=== PATIENT | female | born 1990 | race Caucasian/White ===

== ENCOUNTER 2016-10-13 14:03 | Inpatient (IN) | payer OTHER ==
[~2016-10-13] VITALS: Ht 149.9 cm; Wt 73.4 kg
[2016-10-13 14:09] VITALS: Ht 149.9 cm; Wt 73.4 kg
[2016-10-13 14:30] LABS: ADD SCAN DIFF NO
[2016-10-13 14:32] LABS: BASOPHILS % 0.3 % (0.0-2.0); EOSINOPHILS # 0.1 10^3/ul (0.0-0.5); EOSINOPHILS % 0.7 % (0.0-7.0); HEMATOCRIT 34.4 % (37.0-47.0); HEMOGLOBIN 11.3 g/dl (12.0-16.0); LYMPHOCYTES # 2.1 10^3/ul (0.8-2.9); MEAN CORPUSCULAR HEMOGLOBIN 28.1 pg (29.0-33.0); MEAN CORPUSCULAR HGB CONC 32.8 g/dl (32.0-37.0); MEAN CORPUSCULAR VOLUME 85.6 fl (82.0-101.0); MEAN PLATELET VOLUME 10.3 fl (7.4-10.4); MONOCYTE # 1.1 10^3/ul (0.3-0.9); MONOCYTES % 10.3 % (0.0-11.0); NEUTROPHILS % 67.5 % (39.0-77.0); PLATELET COUNT 265 10^3/UL (140-415); RED BLOOD COUNT 4.02 10^6/ul (4.20-5.40); RED CELL DISTRIBUTION WIDTH 12.3 % (11.5-14.5); WHITE BLOOD COUNT 10.4 10^3/ul (4.8-10.8)
[2016-10-13 14:33] VITALS: BP 142/96; PULSE 100; RESP 18
[2016-10-13 14:41] LABS: ADD UMIC YES; URINE BILIRUBIN (Dip) NEGATIVE (NEGATIVE); URINE BLOOD (Dip) NEGATIVE (NEGATIVE); URINE COLOR LT. YELLOW (YELLOW); URINE GLUCOSE (Dip) NEGATIVE (NEGATIVE); URINE KETONES (Dip) NEGATIVE (NEGATIVE); URINE LEUKOCYTE ESTERASE (Dip) 3+ (NEGATIVE); URINE NITRITE (Dip) NEGATIVE (NEGATIVE); URINE TOTAL PROTEIN (Dip) NEGATIVE (NEGATIVE); URINE UROBILINOGEN (Dip) 0.2 E.U./dL (0.1-1.0)
[2016-10-13 14:50] LABS: ALBUMIN 3.5 g/dl (3.3-4.9); POTASSIUM 3.8 mmol/L (3.5-5.1)
[2016-10-13 14:52] LABS: BILIRUBIN,INDIRECT 0.3 mg/dl (0-1.1); BILIRUBIN,TOTAL 0.3 mg/dl (0.2-1.3); CREATININE 0.89 mg/dl (0.44-1.00)
[2016-10-13 14:53] LABS: ALBUMIN/GLOBULIN RATIO 0.89; CALCIUM 8.9 mg/dl (8.4-10.2); TOTAL PROTEIN 7.4 g/dl (6.1-8.1)
[2016-10-13 15:04] LABS: BACTERIA,URINE OCCASIONAL; URINE RBCS 0-2 /HPF (0)
--- NOTE | 2016-10-13 15:09 | RADRPT ---
PROCEDURE: US OB biophysical profile. CLINICAL INDICATION: decreased movements, preeclampsia TECHNIQUE: Multiple sonographic images of the pelvis were obtained. The images were reviewed on a PACS workstation. COMPARISON: No prior studies are available for comparison. FINDINGS: There is a single viable intrauterine gestation. Cardiac activity is present with 118 beats per min naknek. There is a vertex presentation. The placenta is anterior. There is no evidence of placental abruption. There is a normal amount of amniotic fluid with an KARTIK = 11.1 cm. Biophysical profile: movement 2/2 tone 2/2. breathing 2/2 KARTIK 2/2 Total 01/30 RPTAT: AA . IMPRESSION: Normal biophysical profile. . .Lewis Tran MD, MD Date Time Electronically viewed and signed by .Lewis Tran MD, MD on 10/13/2016 15:09 .S/
--- NOTE | 2016-10-13 17:56 | TRIAGE ---
OB Triage Datetime Report Generated by CPN: 10/13/2016 17:56 Datetime: 10/13/2016 16:00 Labor Evaluation Frequency: OCC Monitor Mode: External Duration (sec)2399: 50-90 Quality: Mild Pattern: Normal: <= 5 Contractions in 10 Minutes Resting Tone [place]: Relaxed Heart Rate FHR Baseline Rate: 125 Monitor Mode: External US FHR Baseline Changes: No Baseline Change Variability: Moderate 6-25 bpm Accelerations: 15X15 Decelerations: None Category: Category I Pain Assessment Pain Presence: None/Denies Pain Assessment Comments: Pt denies feeling pain and pressure with contractions Datetime: 10/13/2016 15:00 Labor Evaluation Frequency: x2 contractions in last hour Monitor Mode: External Duration (sec)2399: 60-90 Quality: Moderate Pattern: Normal: <= 5 Contractions in 10 Minutes Resting Tone [place]: Relaxed Contraction Comments: Irritability Heart Rate FHR Baseline Rate: 130 Monitor Mode: External US FHR Baseline Changes: No Baseline Change Variability: Moderate 6-25 bpm Accelerations: 15X15 Decelerations: None Category: Category I Datetime: 10/13/2016 14:35 Assessment Type: Triage Maternal Assessment Level of Consciousness: Fully Conscious DTR's/Clonus: DTRs 2+; No Clonus Headache: Denies Blurred Vision: No Respiratory Effort: Unlabored; Regular Rhythm; Equal Expansion Breath Sounds, Left: Clear and Equal Breath Sounds, Right: Clear and Equal Nausea/Vomiting: Denies RUQ Epigastric Pain: Denies Lower Extremities Edema: Bilateral Lower Extremities Degree: 1+ Upper Extremities Edema: Bilateral Upper Extremities Degree: Trace Facial Edema: None Fall Risk Assessment History of Falling: (0) No Secondary Diagnosis: (0) No Ambulatory Aid: (0) Bedrest/Nurse Assist IV Therapy: (0) No Gait: (0) Normal/Bedrest/Immobile Mental Status: (0) Oriented to Own Ability Fall Score: 0 Fall Risk Score Definition: No Risk: No action required Datetime: 10/13/2016 14:34 Time of Arrival: 10/13/2016 13:59 EGA: 34.3 Arrived By: Ambulatory Arrived From: Home Chief Complaint: Elevated BP from clinic Movement: Present Contractions: Denies/Absent Rupture of Membranes: Denies Vaginal Bleeding: None Vaginal Discharge: Denies Recent Sexual Intercouse: Denies Abdominal Trauma: Not Applicable Patient Complaints: None Time Provider Notified: 10/13/2016 16:20 Provider Notified: MD Gil Initial Plan: NST, BPP/KARTIK, CBC, CMP, Uric Acid Datetime: 10/13/2016 14:15 Pain Assessment Pain Presence: None/Denies Datetime: 10/13/2016 14:12 Stage of : OB Triage
--- NOTE | 2016-10-13 18:38 | HP ---
Date/Time of Note Date/Time of Note DATE: 10/13/16 TIME: 18:35 OB - History Hx of Present Chief Complaint: Elevated BP Estimated Due Date: November 21, 2016 : 1 Para: 0 Spontaneous : 0 Therapeutic : 0 Care: Good Care Ultrasounds: Normal mid trimester US Obstetrical Complications: Other (Zika infection) Medical Complications: None Past Family/Social History * Past Medical, Surgical, Family and Obstetric Histories reviewed from chart. OB Admission Exam Vital Signs Vital Signs Vital Signs Date Time Temp Pulse Resp B/P Pulse Ox O2 Delivery O2 Flow Rate FiO2 10/13/16 14:33 98.1 100 18 142/96 Room Air Physical Exam HEENT: WNL Heart: Rhythm Normal Lungs: Clear Abdomen: WNL Extremities: Normal Reflexes: Normal Cervical Dilatation: None Membranes: Intact Heart Rate: 130's Accelerations: Accelerations Present Decelerations: No Decelerations Varibility: Moderate Last 72 hours Lab Results CBC & BMP 10/13/16 14:15 Liver Function Test 10/13/16 14:15 Alanine Aminotransferase (ALT/SGPT) 28 Albumin 3.5 Alkaline Phosphatase 225 H Aspartate Amino Transf (AST/SGOT) 29 Direct Bilirubin 0.00 Total Protein 7.4 OB Assessment/Plan Reason for admission: other (R/O preeclampsia) Plan: Other (Admit, 24 hour urine collection, monitor BP) KARIN TENORIO MD Oct 13, 2016 18:38
[2016-10-14] MEDS ORDERED: PREN-93 PO (00:27)
[2016-10-14 18:36] LABS: SCRET 0.89 mg/dl (0.44-1.00)
--- NOTE | 2016-10-14 19:21 | QN ---
Documentation Comment no complaint Afebrile VSS Strip Reactive 24 hour urine protein is elevated Will request Perinatology consult. KARIN TENORIO MD Oct 14, 2016 19:21
[2016-10-14] MEDS ORDERED: ACETAMINOPHEN 325 MG TAB PO PRN (21:00)
[2016-10-14] MEDS ORDERED: MULTIVIT/MIN/FOLATE/IRON/PREN TAB PO SCH (21:00)
[2016-10-14] MEDS: FOLIC ACID 1 MG TAB PO SCH (21:07)
[2016-10-14] MEDS: MULTIVIT/MIN/FOLATE/IRON/PREN TAB PO SCH (21:07)
[2016-10-15 06:16] LABS: ADD SCAN DIFF NO
[2016-10-15 06:25] LABS: BASOPHILS % 0.4 % (0.0-2.0); EOSINOPHILS # 0.1 10^3/ul (0.0-0.5); HEMATOCRIT 30.4 % (37.0-47.0); HEMOGLOBIN 10.3 g/dl (12.0-16.0); LYMPHOCYTES # 1.8 10^3/ul (0.8-2.9); MEAN CORPUSCULAR HEMOGLOBIN 28.7 pg (29.0-33.0); MEAN CORPUSCULAR HGB CONC 33.9 g/dl (32.0-37.0); MEAN CORPUSCULAR VOLUME 84.7 fl (82.0-101.0); MEAN PLATELET VOLUME 10.6 fl (7.4-10.4); MONOCYTES % 10.7 % (0.0-11.0); NEUTROPHIL # 6.1 10^3/ul (1.6-7.5); NEUTROPHILS % 66.7 % (39.0-77.0); PLATELET COUNT 230 10^3/UL (140-415); RED BLOOD COUNT 3.59 10^6/ul (4.20-5.40); RED CELL DISTRIBUTION WIDTH 12.3 % (11.5-14.5); WHITE BLOOD COUNT 9.2 10^3/ul (4.8-10.8)
[2016-10-15 06:35] LABS: ALBUMIN 2.8 g/dl (3.3-4.9); ALBUMIN/GLOBULIN RATIO 0.82; CALCIUM 8.8 mg/dl (8.4-10.2); CREATININE 0.98 mg/dl (0.44-1.00); POTASSIUM 3.7 mmol/L (3.5-5.1); TOTAL PROTEIN 6.2 g/dl (6.1-8.1); URIC ACID 5.5 mg/dl (3.1-7.9)
[2016-10-15] MEDS: FOLIC ACID 1 MG TAB PO SCH (08:45)
[2016-10-15] MEDS: MULTIVIT/MIN/FOLATE/IRON/PREN TAB PO SCH (08:45)
--- NOTE | 2016-10-15 13:56 | QN ---
Documentation Comment No complaint Afebrile VSS Strip Reactive Preeclampsia Stable Continue with present care. KARIN TENORIO MD Oct 15, 2016 13:56
[2016-10-15] MEDS: FERROUS SULFATE (EC) 325 MG TAB PO SCH ×2 (21:00→22:29)
[2016-10-16 07:16] LABS: ADD SCAN DIFF NO
[2016-10-16 07:25] LABS: BASOPHILS % 0.4 % (0.0-2.0); EOSINOPHILS # 0.1 10^3/ul (0.0-0.5); EOSINOPHILS % 1.1 % (0.0-7.0); HEMATOCRIT 30.7 % (37.0-47.0); HEMOGLOBIN 10.2 g/dl (12.0-16.0); LYMPHOCYTES # 1.7 10^3/ul (0.8-2.9); LYMPHOCYTES % 18.1 % (15.0-51.0); MEAN CORPUSCULAR HEMOGLOBIN 28.6 pg (29.0-33.0); MEAN CORPUSCULAR HGB CONC 33.2 g/dl (32.0-37.0); MEAN PLATELET VOLUME 10.6 fl (7.4-10.4); MONOCYTES % 10.9 % (0.0-11.0); NEUTROPHIL # 6.2 10^3/ul (1.6-7.5); NEUTROPHILS % 68.1 % (39.0-77.0); PLATELET COUNT 222 10^3/UL (140-415); RED BLOOD COUNT 3.57 10^6/ul (4.20-5.40); RED CELL DISTRIBUTION WIDTH 12.3 % (11.5-14.5); WHITE BLOOD COUNT 9.1 10^3/ul (4.8-10.8)
[2016-10-16 07:37] LABS: ALBUMIN 2.8 g/dl (3.3-4.9)
[2016-10-16 07:38] LABS: POTASSIUM 3.7 mmol/L (3.5-5.1)
[2016-10-16 07:40] LABS: BILIRUBIN,INDIRECT 0.1 mg/dl (0-1.1); BILIRUBIN,TOTAL 0.1 mg/dl (0.2-1.3); CREATININE 1.01 mg/dl (0.44-1.00)
[2016-10-16 07:41] LABS: ALBUMIN/GLOBULIN RATIO 0.8; TOTAL PROTEIN 6.3 g/dl (6.1-8.1); URIC ACID 5.5 mg/dl (3.1-7.9)
[2016-10-16 07:42] LABS: CALCIUM 8.6 mg/dl (8.4-10.2)
[2016-10-16] MEDS: MULTIVIT/MIN/FOLATE/IRON/PREN TAB PO SCH (08:38)
[2016-10-16] MEDS: FERROUS SULFATE (EC) 325 MG TAB PO SCH ×2 (08:38→22:29)
[2016-10-16] MEDS: FOLIC ACID 1 MG TAB PO SCH (08:39)
--- NOTE | 2016-10-16 20:52 | QN ---
Documentation Comment No complaint Afebrile VSS Strip Reactive Preeclampsia stable Continue with in hospital care. KARIN TENORIO MD Oct 16, 2016 20:51
[2016-10-16] MEDS: DOCUSATE SODIUM 100 MG CAP PO SCH (22:29)
[2016-10-17 06:17] LABS: ADD SCAN DIFF NO
[2016-10-17 06:30] LABS: BASOPHILS % 0.2 % (0.0-2.0); EOSINOPHILS # 0.2 10^3/ul (0.0-0.5); EOSINOPHILS % 1.4 % (0.0-7.0); HEMATOCRIT 30.5 % (37.0-47.0); HEMOGLOBIN 9.9 g/dl (12.0-16.0); LYMPHOCYTES # 1.8 10^3/ul (0.8-2.9); LYMPHOCYTES % 16.1 % (15.0-51.0); MEAN CORPUSCULAR HGB CONC 32.5 g/dl (32.0-37.0); MEAN CORPUSCULAR VOLUME 86.2 fl (82.0-101.0); MEAN PLATELET VOLUME 10.4 fl (7.4-10.4); MONOCYTES % 9.2 % (0.0-11.0); NEUTROPHILS % 71.5 % (39.0-77.0); PLATELET COUNT 210 10^3/UL (140-415); RED BLOOD COUNT 3.54 10^6/ul (4.20-5.40); RED CELL DISTRIBUTION WIDTH 12.4 % (11.5-14.5); WHITE BLOOD COUNT 11.1 10^3/ul (4.8-10.8)
[2016-10-17 06:46] LABS: ALBUMIN 2.8 g/dl (3.3-4.9)
[2016-10-17 06:47] LABS: POTASSIUM 3.5 mmol/L (3.5-5.1)
[2016-10-17 06:49] LABS: ALBUMIN/GLOBULIN RATIO 0.84; BILIRUBIN,INDIRECT 0.3 mg/dl (0-1.1); BILIRUBIN,TOTAL 0.3 mg/dl (0.2-1.3); CREATININE 1.01 mg/dl (0.44-1.00); TOTAL PROTEIN 6.1 g/dl (6.1-8.1); URIC ACID 5.5 mg/dl (3.1-7.9)
[2016-10-17 06:50] LABS: CALCIUM 8.3 mg/dl (8.4-10.2)
[2016-10-17] MEDS: FERROUS SULFATE (EC) 325 MG TAB PO SCH ×2 (08:39→21:32)
[2016-10-17] MEDS: DOCUSATE SODIUM 100 MG CAP PO SCH ×2 (08:39→21:31)
[2016-10-17] MEDS: MULTIVIT/MIN/FOLATE/IRON/PREN TAB PO SCH (08:39)
[2016-10-17] MEDS: FOLIC ACID 1 MG TAB PO SCH (08:39)
[2016-10-17] MEDS ORDERED: SENNA TAB PO ONE (18:00)
[2016-10-17] MEDS ORDERED: DOCUSATE SODIUM 100 MG CAP PO SCH (21:00)
--- NOTE | 2016-10-17 21:36 | QN ---
Documentation Comment No complaint Afebrile VSS Strip Reactive Preeclampsia Stable Continue with present care. KARIN TENORIO MD Oct 17, 2016 21:36
[2016-10-18 06:37] LABS: ADD SCAN DIFF NO
[2016-10-18 06:45] LABS: BASOPHILS % 0.4 % (0.0-2.0); EOSINOPHILS # 0.2 10^3/ul (0.0-0.5); EOSINOPHILS % 1.5 % (0.0-7.0); HEMATOCRIT 30.8 % (37.0-47.0); HEMOGLOBIN 10.2 g/dl (12.0-16.0); LYMPHOCYTES # 1.8 10^3/ul (0.8-2.9); LYMPHOCYTES % 18.1 % (15.0-51.0); MEAN CORPUSCULAR HEMOGLOBIN 28.4 pg (29.0-33.0); MEAN CORPUSCULAR HGB CONC 33.1 g/dl (32.0-37.0); MEAN CORPUSCULAR VOLUME 85.8 fl (82.0-101.0); MEAN PLATELET VOLUME 10.6 fl (7.4-10.4); MONOCYTES % 9.7 % (0.0-11.0); NEUTROPHIL # 6.8 10^3/ul (1.6-7.5); NEUTROPHILS % 68.9 % (39.0-77.0); PLATELET COUNT 227 10^3/UL (140-415); RED BLOOD COUNT 3.59 10^6/ul (4.20-5.40); RED CELL DISTRIBUTION WIDTH 12.3 % (11.5-14.5); WHITE BLOOD COUNT 9.9 10^3/ul (4.8-10.8)
[2016-10-18 06:59] LABS: ALBUMIN 2.9 g/dl (3.3-4.9); POTASSIUM 3.8 mmol/L (3.5-5.1)
[2016-10-18 07:01] LABS: ALBUMIN/GLOBULIN RATIO 0.8; BILIRUBIN,INDIRECT 0.2 mg/dl (0-1.1); BILIRUBIN,TOTAL 0.2 mg/dl (0.2-1.3); CREATININE 1.03 mg/dl (0.44-1.00); TOTAL PROTEIN 6.5 g/dl (6.1-8.1)
[2016-10-18 07:02] LABS: CALCIUM 8.9 mg/dl (8.4-10.2); URIC ACID 5.2 mg/dl (3.1-7.9)
[2016-10-18] MEDS: FERROUS SULFATE (EC) 325 MG TAB PO SCH ×2 (09:06→21:38)
[2016-10-18] MEDS: MULTIVIT/MIN/FOLATE/IRON/PREN TAB PO SCH (09:06)
[2016-10-18] MEDS: FOLIC ACID 1 MG TAB PO SCH (09:07)
[2016-10-18] MEDS: DOCUSATE SODIUM 100 MG CAP PO SCH ×2 (09:07→21:38)
[2016-10-18] MEDS ORDERED: MAGNESIUM HYDROXIDE 30ML CUP PO ONE (12:00)
--- NOTE | 2016-10-18 15:35 | CONS ---
DATE OF ADMISSION: 10/13/2016 DATE OF CONSULTATION: SUBJECTIVE: The patient yesterday. The patient presented with elevated blood pressure, 24-hour u rine showed the amount of protein to be less than 1000 but in about 957 grams. Her blood pressures since admission have become moderate range for normal. She is asymptomatic otherwise. This is her first and she does not have any history of hypertension. Her labs are normal. However, h er creatinine and at the time of admission about 3 days ago was 0.78 and it increased to 0.98 and ye day it was 1.01. IMPRESSION: Intrauterine with currently marked preeclampsia; however, progressing to jalyn re preeclampsia giving the elevated creatinine. RECOMMENDATIONS: I do recommend in-house management at the patient's creatinine is increasing and t wo daily creatinine level and if the creatinine level reaches 1.2, then delivery is recommended if o therwise if she had any evidence of severe preeclampsia given the recommendation is recommended, oth erwise, if she has any evidence of severe preeclampsia recommendation is recommended. If not daily ____ is recommend. Dictated By: FELIPE BIRCH/JOSS Conf#: [id number] DID#: [id number]
--- NOTE | 2016-10-18 20:40 | QN ---
Documentation Comment No complaint Afebrile VSS Strip Reactive Preeclampsia Stable Continue with in hospital care. KARIN TENORIO MD Oct 18, 2016 20:40
[2016-10-19] MEDS: FOLIC ACID 1 MG TAB PO SCH (09:33)
[2016-10-19] MEDS: MULTIVIT/MIN/FOLATE/IRON/PREN TAB PO SCH (09:33)
[2016-10-19] MEDS: DOCUSATE SODIUM 100 MG CAP PO SCH ×2 (09:33→21:32)
[2016-10-19] MEDS: FERROUS SULFATE (EC) 325 MG TAB PO SCH ×2 (09:33→21:32)
[2016-10-19 11:58] LABS: ADD SCAN DIFF NO
[2016-10-19 12:17] LABS: ALBUMIN 2.8 g/dl (3.3-4.9)
[2016-10-19 12:18] LABS: POTASSIUM 3.7 mmol/L (3.5-5.1)
[2016-10-19 12:20] LABS: ALBUMIN/GLOBULIN RATIO 0.82; BILIRUBIN,INDIRECT 0.2 mg/dl (0-1.1); BILIRUBIN,TOTAL 0.2 mg/dl (0.2-1.3); CREATININE 0.89 mg/dl (0.44-1.00); TOTAL PROTEIN 6.2 g/dl (6.1-8.1)
[2016-10-19 12:21] LABS: CALCIUM 8.2 mg/dl (8.4-10.2)
[2016-10-19 12:27] LABS: BASOPHILS % 0.2 % (0.0-2.0); EOSINOPHILS # 0.1 10^3/ul (0.0-0.5); EOSINOPHILS % 0.9 % (0.0-7.0); HEMOGLOBIN 9.6 g/dl (12.0-16.0); LYMPHOCYTES # 1.4 10^3/ul (0.8-2.9); MEAN CORPUSCULAR HEMOGLOBIN 28.4 pg (29.0-33.0); MEAN CORPUSCULAR HGB CONC 33.1 g/dl (32.0-37.0); MEAN CORPUSCULAR VOLUME 85.8 fl (82.0-101.0); MEAN PLATELET VOLUME 10.3 fl (7.4-10.4); MONOCYTES % 9.7 % (0.0-11.0); NEUTROPHIL # 7.4 10^3/ul (1.6-7.5); NEUTROPHILS % 73.5 % (39.0-77.0); PLATELET COUNT 207 10^3/UL (140-415); RED BLOOD COUNT 3.38 10^6/ul (4.20-5.40); RED CELL DISTRIBUTION WIDTH 12.5 % (11.5-14.5)
--- NOTE | 2016-10-19 18:51 | QN ---
Documentation Comment No complaint Afebrile VSS Strip Reactive Preeclampsia Stable Continue with in hospital care. KARIN TENORIO MD Oct 19, 2016 18:51
[2016-10-19] MEDS ORDERED: VITAMIN A & D 5 GM OINT PACKET TOP ONE (21:13)
[2016-10-20] MEDS: FERROUS SULFATE (EC) 325 MG TAB PO SCH (08:33)
[2016-10-20] MEDS: FOLIC ACID 1 MG TAB PO SCH (08:33)
[2016-10-20] MEDS: MULTIVIT/MIN/FOLATE/IRON/PREN TAB PO SCH (08:34)
[2016-10-20] MEDS: DOCUSATE SODIUM 100 MG CAP PO SCH (08:34)
[2016-10-20] MEDS: LACTATED RINGER'S 1,000 ML IV SCH (15:24)
[2016-10-20] MEDS ORDERED: AMPICILLIN 2 GM/NS (PMX) 100 ML IV ONE (15:30)
[2016-10-20] MEDS ORDERED: OXYTOCIN 30 UNITS/LR 500 ML IV SCH (15:30)
[2016-10-20] MEDS ORDERED: BUTORPHANOL 2 MG INJ IV PRN ×2 (15:30)
[2016-10-20] MEDS ORDERED: MISOPROSTOL 200 MCG TAB PR PRN (15:30)
[2016-10-20] MEDS ORDERED: LACTATED RINGER'S 1,000 ML IV PRN (15:30)
[2016-10-20] MEDS ORDERED: METHYLERGONOVINE 0.2 MG INJ IM PRN (15:30)
[2016-10-20] MEDS ORDERED: LIDOCAINE 1% (MPF) 30 ML INJ INJ PRN (15:30)
[2016-10-20] MEDS ORDERED: OXYTOCIN 30 UNITS/LR 500 ML IV PRN (15:30)
[2016-10-20 16:02] LABS: ADD SCAN DIFF NO
[2016-10-20 16:12] LABS: BASOPHILS % 0.4 % (0.0-2.0); EOSINOPHILS # 0.1 10^3/ul (0.0-0.5); EOSINOPHILS % 0.9 % (0.0-7.0); HEMATOCRIT 32.4 % (37.0-47.0); HEMOGLOBIN 10.9 g/dl (12.0-16.0); LYMPHOCYTES # 1.8 10^3/ul (0.8-2.9); LYMPHOCYTES % 16.8 % (15.0-51.0); MEAN CORPUSCULAR HEMOGLOBIN 28.5 pg (29.0-33.0); MEAN CORPUSCULAR HGB CONC 33.6 g/dl (32.0-37.0); MEAN CORPUSCULAR VOLUME 84.6 fl (82.0-101.0); MEAN PLATELET VOLUME 10.5 fl (7.4-10.4); MONOCYTES % 9.7 % (0.0-11.0); NEUTROPHIL # 7.6 10^3/ul (1.6-7.5); NEUTROPHILS % 70.8 % (39.0-77.0); PLATELET COUNT 292 10^3/UL (140-415); RED BLOOD COUNT 3.83 10^6/ul (4.20-5.40); RED CELL DISTRIBUTION WIDTH 12.3 % (11.5-14.5); WHITE BLOOD COUNT 10.7 10^3/ul (4.8-10.8)
[2016-10-20 16:14] LABS: INR 0.89; PT RATIO 0.9
[2016-10-20 16:15] LABS: PARTIAL THROMBOPLASTIN TIME 30.4 Sec (25.0-35.0)
[2016-10-20 16:16] LABS: ALBUMIN 3.5 g/dl (3.3-4.9)
[2016-10-20 16:18] LABS: BILIRUBIN,INDIRECT 0.3 mg/dl (0-1.1); BILIRUBIN,TOTAL 0.3 mg/dl (0.2-1.3)
[2016-10-20 16:19] LABS: TOTAL PROTEIN 7.5 g/dl (6.1-8.1)
[2016-10-20 16:22] LABS: ALANINE AMINOTRANSFERASE 50 IU/L (13-69); ALBUMIN 3.5 g/dl (3.3-4.9); ALBUMIN/GLOBULIN RATIO 1.02; ALKALINE PHOSPHATASE 243 IU/L (42-121); ANION GAP 10 (8-16); ASPARTATE AMINO TRANSFERASE 38 IU/L (15-46); BILIRUBIN,INDIRECT 0.2 mg/dl (0-1.1); BILIRUBIN,TOTAL 0.2 mg/dl (0.2-1.3); BLOOD UREA NITROGEN 8 mg/dl (7-20); CALCIUM 9.5 mg/dl (8.4-10.2); CARBON DIOXIDE 21 mmol/L (21-31); CHLORIDE 108 mmol/L (97-110); CREATININE 0.92 mg/dl (0.44-1.00); GLUCOSE 90 mg/dl (70-220); POTASSIUM 4.5 mmol/L (3.5-5.1); SODIUM 134 mmol/L (135-144); TOTAL PROTEIN 6.9 g/dl (6.1-8.1)
--- NOTE | 2016-10-20 16:56 | RADRPT ---
PROCEDURE: US OB biophysical profile. CLINICAL INDICATION: evaluation TECHNIQUE: Multiple sonographic images of the pelvis were obtained. The images were reviewed on a PACS workstation. COMPARISON: Obstetrical ultrasound from 10/13/2016 FINDINGS: There is a single viable intrauterine gestation. Cardiac activity is present with 161 beats per min brendon. There is a vertex presentation. The placenta is anterior. There is no evidence of placental abruption. There is a normal amount of amniotic fluid with an KARTIK = 12.0 cm. Biophysical profile: movement 2/2 tone 2/2. breathing 2/2 KARTIK 2/2 Total 01/30 RPTAT: AA . IMPRESSION: Normal biophysical profile. Normal KARTIK. heart rate is 161 beats per minute which is at the upper limit of normal. Physician Blaise Date Time Electronically viewed and signed by Physician Blaise on 10/20/2016 16:56 /
--- NOTE | 2016-10-20 17:00 | RADRPT ---
PROCEDURE: US OB. CLINICAL INDICATION: Size and dates TECHNIQUE: Multiple sonographic images of the pelvis and gravid uterus were obtained. The images were reviewed on a PACS workstation. COMPARISON: 10/20/16 FINDINGS: There is a single viable intrauterine gestation. Cardiac activity is present with 137 beats per min brendon. There is a vertex presentation. The placenta is anterior. There is no evidence for an abruption or placenta previa. There is a normal amount of amniotic fluid with an KARTIK = 12 cm. Measurements were made in order to determine age. The results are as follows: BPD =8.8 cm HC =31.4 cm AC =31.5 cm FL =7.0 cm Estimated gestational age of approximately 35 weeks and 3 days based on ultrasound measurements. Clinical age: 35 weeks and 3 days. The estimated date of delivery is 11/21/2016, based on ultrasound measurements. The EFW = 2697 g, 51%, based on LMP age. RPTAT: AA IMPRESSION: Single viable intrauterine gestation of approximately 35 weeks and 3 days based on ultrasound measu rements. .Lewis Tran MD MD Date Time Electronically viewed and signed by .Lewis Tran MD, MD on 10/20/2016 16:59 .S/
--- NOTE | 2016-10-20 19:24 | QN ---
Documentation Comment Patient had SROM and subsequently started to have labor contractions. Cervix 3-4 cm/100%/-1 Strip Reactive Continue with labor. KARIN TENORIO MD Oct 20, 2016 19:24
[2016-10-20] MEDS ORDERED: FENTAnyl 2MCG/ML-ROPIV 0.2% 100 ML ONE (20:16)
[2016-10-20] MEDS ORDERED: NALOXONE (0.4 MG/ML) INJ IV PRN (20:30)
[2016-10-20] MEDS ORDERED: ONDANSETRON 4 MG INJ IV PRN (20:30)
[2016-10-20] MEDS ORDERED: HYDROmorphONE 1 MG/ML SYG IV PRN ×2 (20:30)
[2016-10-20] MEDS ORDERED: PROCHLORPERAZINE 10 MG INJ IV PRN (20:30)
[2016-10-20] MEDS ORDERED: DIPHENHYDRAMINE 50 MG INJ IV PRN (20:30)
[2016-10-20] MEDS ORDERED: FENTAnyl 2MCG/ML-ROPIV 0.2% 100 ML BAG EPI SCH (20:30)
[2016-10-20] MEDS ORDERED: KETOROLAC 30 MG INJ IV PRN (20:30)
[2016-10-20] MEDS: AMPICILLIN 1 GM/NS (PMX) 50 ML IV SCH (22:42)
[2016-10-21] MEDS: LACTATED RINGER'S 1,000 ML IV SCH ×3 (03:38→07:24)
[2016-10-21] MEDS: AMPICILLIN 1 GM/NS (PMX) 50 ML IV SCH ×3 (04:10→07:44)
[2016-10-21] MEDS ORDERED: OXYTOCIN 30 UNITS/LR 500 ML IV SCH (04:30)
[2016-10-21] MEDS ORDERED: MINERAL OIL LIGHT 10 ML VIAL TOP ONE (04:30)
[2016-10-21] MEDS ORDERED: MINERAL OIL 30ML CUP TOP ONE (04:30)
[2016-10-21] MEDS: CARBOPROST 250 MCG INJ IM PRN ×2 (05:53→06:13)
[2016-10-21] MEDS: OXYTOCIN 30 UNITS/LR 500 ML IV SCH ×2 (05:57→10:47)
[2016-10-21] MEDS ORDERED: LOPERAMIDE 2 MG CAP PO PRN (06:30)
[2016-10-21] MEDS ORDERED: SOD CHLORIDE 0.9% 1,000 ML IV SCH (07:00)
--- NOTE | 2016-10-21 07:00 | LDN ---
Date/Time of Note Date/Time of Note DATE: 10/21/16 TIME: 06:53 Delivery Summary . Uterine atony noted. Uterus explored and massaged. Cytotec 400 mcg PO, Cytotec 600 mcg WI and Hemabate 250 mcg IM x 2 doses were given. Uterus subsequently became firm. Weeks of Gestation 35 weeks and 4 days. Placenta Delivered: Spontaneously Meconium: none Episiotomy: No Perineal laceration: 1 Laceration repair: Second degree laceration repaired with 3-0 Vicryl. Anesthesia type: Epidural Estimated blood loss: 1500 Sponge & Needle done & correct: Yes All needle counts correct: Yes Any foreign bodies felt in the: No Problems: Infant Delivery Information Sex Infant Sex: male Apgars 1 Minute: 7 5 Minute: 9 Suctioning Nose & mouth suctioned at jm: Yes Delee suction performed: No Umbilical Cord Umbilical cord with: 3 Vessels Cord presentations: no nuchal cord Cord Blood was obtained: Yes Mother & Baby Disposition Disposition Mom transferred to: Other () Baby to NICU: Yes KARIN TENORIO MD Oct 21, 2016 07:00
[2016-10-21 07:19] LABS: ADD SCAN DIFF NO
[2016-10-21 07:27] LABS: ABNORMAL IP MESSAGE 1; HEMATOCRIT 23.6 % (37.0-47.0); HEMOGLOBIN 7.6 g/dl (12.0-16.0); MEAN CORPUSCULAR HEMOGLOBIN 28.3 pg (29.0-33.0); MEAN CORPUSCULAR HGB CONC 32.2 g/dl (32.0-37.0); MEAN CORPUSCULAR VOLUME 87.7 fl (82.0-101.0); MEAN PLATELET VOLUME 10.6 fl (7.4-10.4); PLATELET COUNT 281 10^3/UL (140-415); RED BLOOD COUNT 2.69 10^6/ul (4.20-5.40); RED CELL DISTRIBUTION WIDTH 12.6 % (11.5-14.5)
[2016-10-21 07:39] LABS: INR 1.08; PT RATIO 1.1
[2016-10-21 07:40] LABS: PARTIAL THROMBOPLASTIN TIME 30.2 Sec (25.0-35.0)
[2016-10-21] MEDS: DOCUSATE SODIUM 100 MG CAP PO SCH ×3 (07:44→21:00)
[2016-10-21] MEDS: FERROUS SULFATE (EC) 325 MG TAB PO SCH ×2 (07:44→10:09)
[2016-10-21 07:46] LABS: ALBUMIN 2.3 g/dl (3.3-4.9); POTASSIUM 3.7 mmol/L (3.5-5.1)
[2016-10-21 07:49] LABS: ALBUMIN/GLOBULIN RATIO 0.85; BILIRUBIN,INDIRECT 0.3 mg/dl (0-1.1); BILIRUBIN,TOTAL 0.3 mg/dl (0.2-1.3); CALCIUM 8.1 mg/dl (8.4-10.2); CREATININE 0.99 mg/dl (0.44-1.00)
[2016-10-21] MEDS ORDERED: PIPER-TAZO 3.375 GM IV (PMX) 100 ML IVPB ONE (08:00)
[2016-10-21 10:09] LABS: LYMPHOCYTES # 3.2 10^3/ul (0.8-2.9); NEUTROPHIL # 30.8 10^3/ul (1.6-7.5); PLATELET ESTIMATE PLT APPEAR ADEQUATE
[2016-10-21] MEDS: FOLIC ACID 1 MG TAB PO SCH (10:09)
[2016-10-21] MEDS: MULTIVIT/MIN/FOLATE/IRON/PREN TAB PO SCH (10:09)
[2016-10-21] MEDS ORDERED: ACETAMINOPHEN 325 MG TAB PO PRN (12:00)
[2016-10-21] MEDS ORDERED: WITCH HAZEL/GLYCERIN PAD PR PRN (12:00)
[2016-10-21] MEDS ORDERED: BENZOCAINE 20% 56 ML SPRAY TOP PRN (12:00)
[2016-10-21] MEDS ORDERED: DIBUCAINE 1% 30 GM OINT PR PRN (12:00)
[2016-10-21] MEDS ORDERED: ACETAMINOPHEN/CODEINE #3 TAB PO PRN (12:00)
[2016-10-21 12:30] VITALS: BP 129/85; PULSE 123; RESP 20
[2016-10-21] MEDS: IBUPROFEN 600 MG TAB PO SCH ×2 (13:14→18:00)
[2016-10-21] MEDS: PIPER-TAZO 3.375 GM IV (PMX) 100 ML IVPB SCH ×2 (13:14→18:56)
[2016-10-21] MEDS: LACTATED RINGER'S 1,000 ML IV* SCH (15:16)
[2016-10-21 15:35] VITALS: BP 118/63; PULSE 109; RESP 18
[2016-10-21 20:00] VITALS: BP_SYST 118; PULSE 100; RESP 18
[2016-10-21] MEDS: SENNA/DOCUSATE NA (8.6MG/50MG) TAB PO SCH (21:00)
[2016-10-22] MEDS: IBUPROFEN 600 MG TAB PO SCH ×5 (00:05→23:58)
[2016-10-22] MEDS: PIPER-TAZO 3.375 GM IV (PMX) 100 ML IVPB SCH ×5 (00:05→23:58)
[2016-10-22] MEDS: LACTATED RINGER'S 1,000 ML IV* SCH ×2 (02:31→15:14)
[2016-10-22 04:15] VITALS: BP 94/52; PULSE 92; RESP 18
[2016-10-22 07:38] LABS: ADD SCAN DIFF NO
[2016-10-22 07:39] LABS: ABNORMAL IP MESSAGE 1; BASOPHIL # 0.1 10^3/ul (0.0-0.1); BASOPHILS % 0.3 % (0.0-2.0); EOSINOPHILS # 0.1 10^3/ul (0.0-0.5); EOSINOPHILS % 0.7 % (0.0-7.0); HEMATOCRIT 20.1 % (37.0-47.0); LYMPHOCYTES # 2.7 10^3/ul (0.8-2.9); LYMPHOCYTES % 15.6 % (15.0-51.0); MEAN CORPUSCULAR HEMOGLOBIN 27.8 pg (29.0-33.0); MEAN CORPUSCULAR HGB CONC 32.8 g/dl (32.0-37.0); MEAN CORPUSCULAR VOLUME 84.8 fl (82.0-101.0); MEAN PLATELET VOLUME 10.5 fl (7.4-10.4); MONOCYTE # 1.2 10^3/ul (0.3-0.9); MONOCYTES % 7.1 % (0.0-11.0); NEUTROPHIL # 12.9 10^3/ul (1.6-7.5); NEUTROPHILS % 75.4 % (39.0-77.0); PLATELET COUNT 167 10^3/UL (140-415); RED BLOOD COUNT 2.37 10^6/ul (4.20-5.40); RED CELL DISTRIBUTION WIDTH 13.8 % (11.5-14.5); WHITE BLOOD COUNT 17.1 10^3/ul (4.8-10.8)
[2016-10-22 07:44] LABS: HEMOGLOBIN 6.6 g/dl (12.0-16.0)
[2016-10-22 07:56] LABS: ALBUMIN/GLOBULIN RATIO 0.8; BILIRUBIN,INDIRECT 0.2 mg/dl (0-1.1); BILIRUBIN,TOTAL 0.2 mg/dl (0.2-1.3); CALCIUM 7.4 mg/dl (8.4-10.2); CREATININE 0.9 mg/dl (0.44-1.00); POTASSIUM 3.6 mmol/L (3.5-5.1); TOTAL PROTEIN 4.5 g/dl (6.1-8.1)
[2016-10-22 08:20] VITALS: BP 109/59; PULSE 102; RESP 18
[2016-10-22] MEDS: DOCUSATE SODIUM 100 MG CAP PO SCH ×2 (09:48→21:40)
[2016-10-22] MEDS: FERROUS SULFATE (EC) 325 MG TAB PO SCH ×3 (09:48→21:40)
[2016-10-22] MEDS: SENNA/DOCUSATE NA (8.6MG/50MG) TAB PO SCH ×2 (09:49→21:40)
[2016-10-22 11:49] VITALS: BP 117/70; PULSE 112; RESP 19
[2016-10-22 15:19] VITALS: BP 113/72; PULSE 104; RESP 18
--- NOTE | 2016-10-22 17:20 | QN ---
Documentation Comment No complaint Afebrile VSS Fundus Firm Lochia Scant Fe supplement Repeat CBC in AM. KARIN TENORIO MD Oct 22, 2016 17:20
[2016-10-22 20:00] VITALS: BP 111/76; PULSE 98; RESP 18
[2016-10-23 04:00] VITALS: BP 122/78; PULSE 78; RESP 18
[2016-10-23] MEDS: PIPER-TAZO 3.375 GM IV (PMX) 100 ML IVPB SCH ×3 (06:01→17:38)
[2016-10-23] MEDS: IBUPROFEN 600 MG TAB PO SCH ×3 (06:02→17:38)
[2016-10-23 08:07] LABS: ADD SCAN DIFF NO
[2016-10-23 08:10] VITALS: BP 109/65; PULSE 94; RESP 18
[2016-10-23 08:13] LABS: ABNORMAL IP MESSAGE 1; BASOPHIL # 0.1 10^3/ul (0.0-0.1); BASOPHILS % 0.4 % (0.0-2.0); EOSINOPHILS # 0.2 10^3/ul (0.0-0.5); EOSINOPHILS % 1.6 % (0.0-7.0); HEMATOCRIT 20.1 % (37.0-47.0); LYMPHOCYTES # 2.1 10^3/ul (0.8-2.9); LYMPHOCYTES % 17.3 % (15.0-51.0); MEAN CORPUSCULAR HEMOGLOBIN 29.2 pg (29.0-33.0); MEAN CORPUSCULAR HGB CONC 34.3 g/dl (32.0-37.0); MEAN CORPUSCULAR VOLUME 85.2 fl (82.0-101.0); MEAN PLATELET VOLUME 10.1 fl (7.4-10.4); MONOCYTE # 0.7 10^3/ul (0.3-0.9); MONOCYTES % 5.7 % (0.0-11.0); PLATELET COUNT 198 10^3/UL (140-415); RED BLOOD COUNT 2.36 10^6/ul (4.20-5.40); RED CELL DISTRIBUTION WIDTH 13.7 % (11.5-14.5); WHITE BLOOD COUNT 12.4 10^3/ul (4.8-10.8)
[2016-10-23 08:17] LABS: HEMOGLOBIN 6.9 g/dl (12.0-16.0)
[2016-10-23] MEDS ORDERED: DIPHTH/TET/ACEL PERTUSS (ADULT) 0.5 ML VIAL IM* ONE (09:00)
[2016-10-23] MEDS: FERROUS SULFATE (EC) 325 MG TAB PO SCH ×3 (09:28→21:31)
[2016-10-23] MEDS: DOCUSATE SODIUM 100 MG CAP PO SCH ×2 (09:28→21:31)
[2016-10-23] MEDS: SENNA/DOCUSATE NA (8.6MG/50MG) TAB PO SCH ×2 (09:28→21:31)
[2016-10-23] MEDS: LACTATED RINGER'S 1,000 ML IV* SCH (09:31)
[2016-10-23] MEDS: LACTATED RINGER'S 1,000 ML IV SCH (11:30)
--- NOTE | 2016-10-23 12:48 | CONS ---
Date/Time of Note Date/Time of Note DATE: 10/23/16 TIME: 12:27 Assessment/Plan Assessment/Plan Chief Complaint/Hosp Course Patient is a 25 yo obese female, per pt pushed for 3 hours in lithotomy, no difficulty with delivery noted in chart with motor and sensory deficits on physical exam. I do not believe this is related to a difficult epidural placement; however, given her findings would recommend neurology consult and MRI L spine to r/o epidural hematoma. Patient likely with compression injury to bilateral femoral nerves from pushing in lithotomy. Problems: Consultation Date/Type/Reason Admit Date/Time Oct 13, 2016 at 16:20 Date of Consultation: October 23, 2016 Type of Consultation: Anesthesia Reason for Consultation LLE weakness/numbness Referring Provider: KARIN GIL MD Hx of Present Illness 25 yo obese F presented for r/o pre-eclampsia that progressed to severe preeclampsia, now s/p with epidural analgesia c/o LLE weakness/numbness. Patient delivered on 10/21/2016 and per RN has been c/o LLE weakness/numbness since arrival to unit. Dr. Gil was notified and consulted anesthesia for evaluation of LLE weakness/numbness. Patient denies any recent falls/injuries, h/o back pain, h/o back surgery or DELMI. Denies any prior motor or neuro deficits prior to epidural placement. Does not complain of PDPH. Records were reviewed, discussed epidural placement with anesthesiologist of record, Dr. Farfan. no loss of urinary or fecal continence. Able to stand with assist. Tolerating po diet, no positional POWELL. no foot drop. Constitutional: no complaints Eyes: no complaints ENT: no complaints Respiratory: no complaints Cardiovascular: no complaints Gastrointestinal: no complaints Genitourinary: no complaints Musculoskeletal: other (LLE weakness/numbness) Skin: no complaints Neurologic: focal-weakness (LLE weakness, unable to lift knee off bed.) Endocrine: no complaints Lymphatic: no complaints Psychological: no complaints Immunologic: no complaints Past Medical History Medical History: no pertinent history Past Surgical History Past Surgical Hx: no surgical history, noncontributory Family History Significant Family History: no pertinent family hx Social History Alcohol Use: occasionally Smoking Status: Never smoker Exam/Review of Systems Vital Signs Vitals Vital Signs Date Time Temp Pulse Resp B/P Pulse Ox O2 Delivery O2 Flow Rate FiO2 5/1/17 08:10 97.9 94 18 109/65 Room Air Intake and Output 10/22/16 10/22/16 10/23/16 15:00 23:00 07:00 Intake Total 1100 ml 375 ml 1340 ml Output Total 2800 ml 1400 ml Balance -1700 ml -1025 ml 1340 ml Exam Constitutional: alert, obese, oriented, well developed Psych: nl mood/affect, no complaints Head: atraumatic, normocephalic Eyes: EOMI, PERRL, nl conjunctiva, nl lids, nl sclera ENMT: mucosa pink and moist, nl external ears & nose, nl lips & teeth Neck: non-tender, supple Respiratory: clear to auscultation, normal air movement Cardiovascular: nl pulses, regular rate and rhythm Gastrointestinal: bowel sounds, non-tender, soft Musculoskeletal: muscle weakness (able to lift L knee off bed, unable to maintain against resistance, 3/5), other (normal +2 DTR, sensation decreased over bilateral medial aspects of thighs, L>R, decreased sensation of lateral aspect of R thigh.), spine non-tender Extremities: normal pulses Neurological: FINANCIAL QUANTITATIVE ANALYST II-XII intact, DTR's symmetric, focal weakness, nl mental status, nl speech, numbness (see comments in MSK), reflexes (+2 DTRs) Skin: nl turgor, other (site of epidural c/d/i, no erythema or swelling noted) Results Result Diagram: 10/23/16 0712 10/22/16 0622 Results 24 hrs Laboratory Tests Test 10/23/16 07:12 White Blood Count 12.4 #H Red Blood Count 2.36 L Hemoglobin 6.9 *L Hematocrit 20.1 L Mean Corpuscular Volume 85.2 Mean Corpuscular Hemoglobin 29.2 Mean Corpuscular Hemoglobin Concent 34.3 Red Cell Distribution Width 13.7 Platelet Count 198 Mean Platelet Volume 10.1 Neutrophils % 73.0 Lymphocytes % 17.3 Monocytes % 5.7 Eosinophils % 1.6 Basophils % 0.4 Nucleated Red Blood Cells % 0.0 Neutrophils # 9.0 H Lymphocytes # 2.1 Monocytes # 0.7 Eosinophils # 0.2 Basophils # 0.1 Nucleated Red Blood Cells # 0.0 Medications Medications Current Medications Acetaminophen (Tylenol Tab) 650 mg Q6H PRN PO PAIN AND OR ELEVATED TEMP; Start 10/14/16 at 21:00 Docusate Sodium (Colace) 100 mg BID PO Last administered on 10/23/16 09:28; Admin Dose 100 MG; Start 10/16/16 at 21:00 Butorphanol Tartrate 2 mg 2 mg Q2H PRN IV PAIN; Start 10/20/16 at 15:30 Oxytocin/Lactated Ringer's 500 ml @ 0 mls/hr ONCE PRN IV For Hemorrhage Management; Start 10/20/16 at 15:30 Piperacillin Sod/ Tazobactam Sod (Zosyn 3.375gm/ 100 ml (Pmx)) 100 ml @ 200 mls /hr Q6 IVPB Last administered on 10/23/16 11:54; Admin Dose 200 MLS/HR; Start 10/21/16 at 13:00 Ibuprofen (Motrin) 600 mg Q6 PO Last administered on 10/23/16 11:54; Admin Dose 600 MG; Start 10/21/16 at 12:00 Acetaminophen (Tylenol Tab) 650 mg Q4H PRN PO PAIN LEVEL 1-5; Start 10/21/16 at 12:00 Acetaminophen/ Codeine Phosphate (Tylenol No.3) 1 tab Q4H PRN PO PAIN LEVEL 1-5 ; Start 10/21/16 at 12:00 Senna/Docusate Sodium (Senokot-S) 1 tab BID PO Last administered on 10/23/16 09 :28; Admin Dose 1 TAB; Start 10/21/16 at 21:00 Ferrous Sulfate 325 mg 325 mg TID PO Last administered on 10/23/16 09:28; Admin Dose 325 MG; Start 10/22/16 at 09:00 Lactated Ringer's (Lr) 1,000 ml @ 50 mls/hr Q20H IV ; Start 10/23/16 at 11:30 Copies To: CC: KARIN GIL MD,DAREN Larios MD October 23, 2016 12:39
--- NOTE | 2016-10-23 15:07 | RADRPT ---
PROCEDURE: MRI Lumbar Spine without contrast. CLINICAL INDICATION: Lumbar spine pain radiating to the left lower extremity status post epidural for delivery 10/20/2016. Evaluate for epidural hemorrhage. TECHNIQUE: An MRI of the lumbar spine was performed with multiple sequences in the sagittal and ax ial planes without contrast. Images reviewed on a high-resolution PACS system. COMPARISON: None available at the time of dictation. FINDINGS: There are 6 lumbar vertebral bodies with well formed discs between S1-S2. The alignment of the lumb ar spine is normal. No vertebral body subluxation is seen. The intervertebral discs are normal in height and signal intensity. The vertebral body heights and marrow signal are normal. The conus me dullaris is visible at the L1 level and appears grossly normal. There is no significant fluid sign al or evidence of epidural hematoma. The lumbar nerve roots are normal in appearance. The paraspinal soft tissues are unremarkable. No significant paraspinal soft tissue swelling. L1-L2: The posterior margin of the disc is normal in appearance. No significant disc bulge or prot rusion is evident. The central canal and neural foramina are adequately patent. L2-L3: The posterior margin of the disc is normal in appearance. No significant disc bulge or prot rusion is evident. The central canal and neural foramina are adequately patent. L3-L4: There is a 1-2 mm annular disc bulge without significant indentation on the ventral thecal s ac. The thecal sac and lateral recesses are patent. There is mild bilateral facet spondylosis. Th e neural foramina are patent. L4-L5: There is a 1-2 mm annular disc bulge without significant indentation on the ventral thecal s ac. The thecal sac and lateral recesses are patent. There is mild bilateral facet spondylosis. Th e neural foramina are patent. L5-S1: The posterior margin of the disc is normal in appearance. No significant disc bulge or prot rusion is evident. The central canal and neural foramina are adequately patent. IMPRESSION: 1. Normal MRI of the lumbar spine. No significant narrowing of the lumbar thecal sac, lateral rece sses or neural foramina. 2. No evidence of epidural fluid collections/hematoma. The left-sided neural foramina and lateral recesses are normal in appearance. RPTAT: HGAS .Jon Hopper MD, MD Date Time Electronically viewed and signed by .Jon Hopper MD, on 10/23/2016 15:07 .S/
--- NOTE | 2016-10-23 16:10 | OPPN ---
Date/Time of Note Date/Time of Note DATE: 10/23/16 TIME: 16:07 Anesthesia Follow up Anesthesia Follow up Last documented vital signs Vital Signs Date Time Temp Pulse Resp B/P Pulse Ox O2 Delivery O2 Flow Rate FiO2 10/23/16 08:10 97.9 94 18 109/65 Room Air Respiratory function: WNL Cardiovascular function: WNL Comments 25 yo F with obesity, severe preeclampsia s/p with epidural with LLE weakness and numbness and RLE numbness. MRI L-spine was completed and was negative for any pathologies. Findings discussed with Dr. Gil and Dr. Farfan. Recommend Neurology consult for further management and follow-up. DAREN MCCLURE MD October 23, 2016 16:10
[2016-10-23 16:25] VITALS: BP 121/78; PULSE 103; RESP 18
--- NOTE | 2016-10-23 19:42 | QN ---
Documentation Comment Patient complains of left leg numbness and difficulty walking. No other complaint Afebrile VSS Fundus Firm Hgb 6.9 MRI done and reported to be normal Will request Neurology consult. KARIN TENORIO MD October 23, 2016 19:42
[2016-10-23 20:10] VITALS: BP 125/82; PULSE 97; RESP 18
[2016-10-24] MEDS: PIPER-TAZO 3.375 GM IV (PMX) 100 ML IVPB SCH ×3 (00:18→11:20)
[2016-10-24] MEDS: IBUPROFEN 600 MG TAB PO SCH ×5 (00:18→23:52)
[2016-10-24 04:00] VITALS: BP 114/68; PULSE 97; RESP 18
[2016-10-24 08:00] VITALS: BP 117/77; PULSE 85; RESP 18
[2016-10-24] MEDS: DOCUSATE SODIUM 100 MG CAP PO SCH ×2 (08:42→21:14)
[2016-10-24] MEDS: SENNA/DOCUSATE NA (8.6MG/50MG) TAB PO SCH ×2 (08:42→21:14)
[2016-10-24] MEDS: FERROUS SULFATE (EC) 325 MG TAB PO SCH ×3 (08:42→21:14)
[2016-10-24] MEDS: LACTATED RINGER'S 1,000 ML IV SCH (10:05)
[2016-10-24 10:16] LABS: ADD SCAN DIFF NO
[2016-10-24 10:21] LABS: ABNORMAL IP MESSAGE 1; BASOPHIL # 0.1 10^3/ul (0.0-0.1); BASOPHILS % 0.6 % (0.0-2.0); EOSINOPHILS # 0.2 10^3/ul (0.0-0.5); EOSINOPHILS % 2.1 % (0.0-7.0); HEMATOCRIT 21.1 % (37.0-47.0); LYMPHOCYTES # 2.3 10^3/ul (0.8-2.9); LYMPHOCYTES % 23.8 % (15.0-51.0); MEAN CORPUSCULAR HEMOGLOBIN 28.3 pg (29.0-33.0); MEAN CORPUSCULAR HGB CONC 32.7 g/dl (32.0-37.0); MEAN CORPUSCULAR VOLUME 86.5 fl (82.0-101.0); MEAN PLATELET VOLUME 9.9 fl (7.4-10.4); MONOCYTE # 0.5 10^3/ul (0.3-0.9); MONOCYTES % 5.2 % (0.0-11.0); NEUTROPHIL # 6.1 10^3/ul (1.6-7.5); NUCLEATED RED BLOOD CELLS% 0.3 /100WBC (0.0-0.0); PLATELET COUNT 263 10^3/UL (140-415); RED BLOOD COUNT 2.44 10^6/ul (4.20-5.40); RED CELL DISTRIBUTION WIDTH 13.6 % (11.5-14.5); WHITE BLOOD COUNT 9.6 10^3/ul (4.8-10.8)
[2016-10-24 10:30] LABS: HEMOGLOBIN 6.9 g/dl (12.0-16.0)
--- NOTE | 2016-10-24 13:53 | QN ---
Documentation Comment Patient complains of left leg numbness and difficulty walking.although improved No other complaint Afebrile VSS Fundus Firm Hgb 6.9 MRI done and reported to be normal Possible discharge after Neurology consult DULCE CLAY M.D. October 24, 2016 13:53
[2016-10-24 16:00] VITALS: BP 109/71; PULSE 86; RESP 19
[2016-10-24 19:50] VITALS: PULSE 92; RESP 18
--- NOTE | 2016-10-24 22:00 | PN ---
Date/Time of Note Date/Time of Note DATE: 10/24/16 TIME: 21:56 OB Subjective Subjective Subjective here for responded for request to be discharged OB Objective Objective Objective vss afebrile HnH 6.9,21.1 wbc 9.500 OB Assessment/Plan Other Assessment: severe anemia even after 2units RBC] Other plan: d/s home in am after repeat cbc if stable TOMMIE ROGERS MD October 24, 2016 22:00
[2016-10-25 04:00] VITALS: BP 128/83; PULSE 83; RESP 18
--- NOTE | 2016-10-25 05:12 | CONS ---
DATE OF ADMISSION: 10/13/2016 DATE OF CONSULTATION: REFERRING PHYSICIAN: Dr. Gil Thank you for asking me to see the patient with you. HISTORY OF PRESENT ILLNESS: The patient is a 25-year-old lady with 3-hour lithotomy ____ 1, 1 in which the patient has delivered a baby boy. The patient after that has left leg numbness in w hich the patient said she was improved since yesterday. MRI done over her lower back in the epidura l area was reported within normal limits. PHYSICAL EXAMINATION: GENERAL: On exam today, the patient is alert, awake, oriented to time, place and person. Normal sp eech and normal language. CRANIAL NERVES: Cranial nerve II: Pupils equal on both sides, reactive to light. Cranial nerves I II, IV and : Extraocular muscles intact without nystagmus. Cranial nerve V: Equal sensation to face. Cranial nerve VII: Symmetrical face. Cranial nerve VIII: Equal hearing bilaterally. Crani al nerve X: Elevates palate. Cranial nerve XI: Elevates shoulder 5/5. Cranial nerve XII: Straig ht tongue. MOTOR: Left leg hip is 4/5, difficulty to walk on tip-toes with ____. SENSATION: Equal for light touch and temperature. COORDINATION: [id number] test intact. HEART: Regular rate and rhythm. LUNGS: Equal breath sounds. ABDOMEN: Soft, relaxed, nondistended, nontender. ASSESSMENT AND PLAN: This is a patient 25 years old with left leg numbness with possibility of unde rlying neuropathy. Follow up the patient with nerve conduction study and EMG. MRI done within norm al limits. Will ____ the patient on Neurontin 100 mg 3 times a day and see how the patient responds for that and follow up the patient with physical therapy and gait balance. Again, thank you for asking me to see the patient with you. Dictated By: MANISH STERLING/JOSS Conf#: [id number] DID#: [id number]
[2016-10-25] MEDS: IBUPROFEN 600 MG TAB PO SCH ×2 (05:50→12:46)
[2016-10-25 08:30] VITALS: BP 130/88; PULSE 98; RESP 18
[2016-10-25 08:32] LABS: ADD SCAN DIFF NO
[2016-10-25 08:44] LABS: BASOPHIL # 0.1 10^3/ul (0.0-0.1); BASOPHILS % 0.5 % (0.0-2.0); EOSINOPHILS # 0.3 10^3/ul (0.0-0.5); EOSINOPHILS % 2.5 % (0.0-7.0); HEMATOCRIT 24.6 % (37.0-47.0); HEMOGLOBIN 8.1 g/dl (12.0-16.0); LYMPHOCYTES # 2.5 10^3/ul (0.8-2.9); LYMPHOCYTES % 23.1 % (15.0-51.0); MEAN CORPUSCULAR HEMOGLOBIN 28.5 pg (29.0-33.0); MEAN CORPUSCULAR HGB CONC 32.9 g/dl (32.0-37.0); MEAN CORPUSCULAR VOLUME 86.6 fl (82.0-101.0); MEAN PLATELET VOLUME 9.6 fl (7.4-10.4); MONOCYTE # 0.6 10^3/ul (0.3-0.9); MONOCYTES % 5.1 % (0.0-11.0); NEUTROPHIL # 6.9 10^3/ul (1.6-7.5); NUCLEATED RED BLOOD CELLS% 0.3 /100WBC (0.0-0.0); PLATELET COUNT 377 10^3/UL (140-415); RED BLOOD COUNT 2.84 10^6/ul (4.20-5.40); RED CELL DISTRIBUTION WIDTH 13.7 % (11.5-14.5); WHITE BLOOD COUNT 10.8 10^3/ul (4.8-10.8)
[2016-10-25] MEDS: SENNA/DOCUSATE NA (8.6MG/50MG) TAB PO SCH (09:34)
[2016-10-25] MEDS: DOCUSATE SODIUM 100 MG CAP PO SCH (09:35)
[2016-10-25] MEDS: FERROUS SULFATE (EC) 325 MG TAB PO SCH ×2 (09:35→12:45)
--- NOTE | 2016-10-25 14:13 | DS ---
DATE OF ADMISSION: 10/13/2016 DATE OF DISCHARGE: 10/25/2016 ADMITTING DIAGNOSIS: at 34+ weeks with preeclampsia. HISTORY: A 25-year-old female 1, para 0 at the time of admission, para 1 at time of dischar ge, was admitted due to elevated blood pressure. The patient had workup for preeclampsia. Perinato logy consultation was obtained. Recommendation of perinatologist was to have the patient stay in [facility] until delivery. On 10/19/2016 the patient had spontaneous rupture of membranes and went into active labor. The patient had a spontaneous vaginal delivery on 10/21/2016. The patient had postp artum hemorrhage and patient required blood transfusion. After receiving blood transfusion, the noah lynch became hemodynamically stable. During the period, the patient had some numbness in her left leg and some difficulty ambulating. Anesthesia consultation was obtained since patient funez d an epidural during labor. Patient had an MRI which was reportedly normal. Neurologic consultatio n was obtained. The patient was evaluated by neurologist, and his recommendation was to have the melisa duncan discharged and have her follow up as outpatient. Patient is discharged on day #4 a fter having adequate bladder and bowel function and being able to ambulate without any difficulty. CONDITION ON DISCHARGE: Stable. DISCHARGE INSTRUCTIONS: DIET: Regular. ACTIVITIES: Pelvic rest. MEDICATIONS: 1. Neurontin 100 mg p.o. t.i.d. as needed for pain. 2. Ferrous sulfate 325 mg 3 times a day. 3. Continue with vitamins. FOLLOWUP: In 2 weeks. FINAL DIAGNOSES: 1. , delivered vaginally. 2. Preeclampsia. 3. spontaneous rupture of membranes. 4. labor. 5. hemorrhage. 6. Anemia associated with acute blood loss. 7. Neuropathy. 8. Mother with single liveborn. Dictated By: KARIN SMITH/JOSS Conf#: [id number] DID#: [id number]
== END 2016-10-25 14:36 | disposition home or self-care (01) | DRG 774 ==
LOC: OBT 14:03 → L-D 14:03 → OBT 16:20 → OBG 16:20 → L-D 10-20 15:45 → PP1 10-21 11:47
PROVIDERS: ADMIT Obstetrics & Gynecology; ATTEND Obstetrics & Gynecology
PROC: 10E0XZZ Delivery of Products of Conception, External Approach (ICD-10-PCS; principal; 2016-10-21)
PROC: 0HQ9XZZ Repair Perineum Skin, External Approach (ICD-10-PCS; 2016-10-21)
PROC: 30233N1 Transfusion of Nonautologous Red Blood Cells into Peripheral Vein, Percutaneous Approach (ICD-10-PCS; 2016-10-21)
DX: O60.14X0 Preterm labor third trimester with preterm delivery third trimester, not applicable or unspecified (principal); O72.1 Other immediate postpartum hemorrhage; D62 Acute posthemorrhagic anemia; O14.94 Unspecified pre-eclampsia, complicating childbirth; G62.9 Polyneuropathy, unspecified; O99.02 Anemia complicating childbirth; O99.214 Obesity complicating childbirth; E66.9 Obesity, unspecified; Z68.32 Body mass index [BMI] 32.0-32.9, adult; O70.0 First degree perineal laceration during delivery; O14.14 Severe pre-eclampsia complicating childbirth; Z3A.34 34 weeks gestation of pregnancy; Z37.0 Single live birth
CPT/HCPCS: 36415; 36430; 62319; 72148; 76816; 76818; 80053; 80076; 81001; 81003; 82575; 84156; 84560; 85025; 85384; 85610; 85730; 86592; 86850; 86900; 86901; 86920; 87040; 87086; 87340; 88307; 90715; 99464; G0463; J0290; J2543; J2590; J3010; J7030; J7120; P9016